=== PATIENT | male | born 1950 | race Caucasian/White ===

== ENCOUNTER 2025-02-01 09:26 | Day surgery (SDC) | payer OTHER ==
[~2025-02-01] VITALS: Ht 170.2 cm; Wt 95.3 kg
[~2025-02-01 09:26] MED LIST: ALBU18HF2; ASPI-611 PO; DAPA10TA PO; LIDOcaine 2% Viscous 15ml cup ONE; LISI20TA28 PO; PSYL575P22 PO; ROSU40TA89 PO; simethicone 40mg/0.6ml oral drops 15ml ONE
[2025-02-01] MEDS: ringers solution, lacted 1,000 ML IV SCH (10:10)
[2025-02-01] MEDS ORDERED: MIDAZolam 1 MG/ML 5ML VIAL ONE (10:38)
[2025-02-01] MEDS ORDERED: fentaNYL/PF 50MCG/1 ML 2ML syringe ONE (10:38)
[2025-02-01 10:50] VITALS: BP 114/60; PULSE 70; RESP 14; O2SAT 98
[2025-02-01 11:10] VITALS: BP 110/62; PULSE 68; RESP 16; O2SAT 95
[2025-02-01 11:20] VITALS: BP 112/43; PULSE 67; RESP 12; O2SAT 95
[2025-02-01 11:30] VITALS: BP 124/54; PULSE 71; RESP 15; O2SAT 97
== END 2025-02-01 11:40 | disposition home or self-care (01) ==
LOC: GI LAB 09:26
PROVIDERS: ATTEND Internal Medicine Gastroenterology
DX: Z12.11 Encounter for screening for malignant neoplasm of colon (principal); K57.30 Diverticulosis of large intestine without perforation or abscess without bleeding; E78.2 Mixed hyperlipidemia; G47.30 Sleep apnea, unspecified; I12.9 Hypertensive chronic kidney disease with stage 1 through stage 4 chronic kidney disease, or unspecified chronic kidney disease; N18.2 Chronic kidney disease, stage 2 (mild); J44.9 Chronic obstructive pulmonary disease, unspecified; N40.0 Benign prostatic hyperplasia without lower urinary tract symptoms; Z86.0100 Personal history of colon polyps, unspecified
CPT/HCPCS: G0105; J2250; J3010; J7120; Z7512; 45378; 99152; 99153; A4620